=== PATIENT | female | born 1990 | race Two or more races ===

== ENCOUNTER 2016-12-11 13:04 | Emergency (ER) | payer SELFPAY ==
[~2016-12-11 13:04] MED LIST: TRAM50TA PO
[2016-12-11 13:20] VITALS: BP 116/78
--- NOTE | 2016-12-11 15:30 | PHYS DOC ---
Past Medical History Past Medical History: Other Additional Past Medical Histor: POLYCYSTIC OVARIAN DISEASE Past Surgical History: Tubal ligation Alcohol Use: None Drug Use: None Adult General Chief Complaint Chief Complaint: LOWER EXT PAIN HPI HPI Patient is a 26 year old female who presents with left calf pain. Patent it reports since yesterday she has been having some discomfort in her left calf. No trauma or other inciting event. She also reports that she had had mild discomfort in her chest at one point, but is not having any pain now. No shortness of breath. Lastly, she is having slight pain in her right cheek when she opens her mouth. She has not taken anything for symptoms. Of note, patient has been on oral contraceptives for the past week. She told her doctor about her symptoms, was instructed to come to the emergency department for evaluation. Review of Systems Review of Systems Constitutional: Denies fever or chills Eyes: Denies change in visual acuity or eye pain HENT: R cheek pain when opening mouth Respiratory: Denies cough or shortness of breath Cardiovascular: Denies chest pain GI: Denies abdominal pain, nausea, vomiting, bloody stools or diarrhea : Denies dysuria or hematuria Musculoskeletal: L calf pain Integument: Denies rash or skin lesions Neurologic: Denies headache, focal weakness or sensory changes Allergies Allergies Allergies Coded Allergies Type Severity Reaction Last Updated Verified No Known Drug Allergies 10/18/16 No Physical Exam Physical Exam Constitutional: Well developed, well nourished, no acute distress, non-toxic appearance HENT: Normocephalic, atraumatic, bilateral external ears normal; oropharynx clear; mild TTP over R maxillary sinus Eyes: EOMI, conjunctiva normal, no discharge Neck: Normal range of motion, no stridor Cardiovascular: Heart rate normal, regular rhythm, no murmur Lungs & Thorax: Bilateral breath sounds clear to auscultation Abdomen: Bowel sounds normal, soft, non-distended, no TTP Skin: Warm, dry, no erythema, no rash Extremities: L calf mildly TTP, no erythema, swelling, or warmth to touch Neurologic: Alert and oriented X 3, no gross deficits noted Current Patient Data Vital Signs Vital Signs Date Time Temp Pulse Resp B/P Pulse Ox O2 Delivery O2 Flow Rate FiO2 12/11/16 13:20 98.9 72 18 116/78 96 Room Air 98.9 EKG EKG EKG (my read): sinus rhythm, rate 61, normal axis, intervals wnl, no acute ischemic changes Radiology/Procedures Radiology/Procedures LLE US: Impression: No evidence of left lower extremity deep venous thrombosis. Course & Med Decision Making Course & Med Decision Making Pertinent Labs and Imaging studies reviewed. (See chart for details) Patient is 26-year-old female who presents with left calf pain and right facial pain. Will obtain ultrasound to rule out DVT, although this seems unlikely based on physical exam. Mild tenderness over right maxillary sinus, possible sinusitis but in general no concerning findings on physical exam. No tachycardia or hypoxia. EKG already obtained, no abnormalities per my read. Declines need for pain medication. Left lower extremity ultrasound negative for DVT. Discussed results with patient. Discharged home with instructions for follow-up and return precautions. Dragon Disclaimer Dragon Disclaimer This electronic medical record was generated, in whole or in part, using a voice recognition dictation system. Departure Departure Impression: Primary Impression: Acute pain of left lower extremity Additional Impression: Facial pain Disposition: 01 HOME, SELF-CARE Condition: STABLE Referrals: JESSICA MATTHEWS MD (PCP) Patient Instructions: Muscle Strain Additional Instructions: Thank you for allowing us to provide care today in the Emergency Department. Your ultrasound did not show any evidence of a blood clot in your leg. You can take acetaminophen, ibuprofen, or naproxen for your pain. Follow the directions on the label. Schedule a follow up appointment with your primary care doctor as soon as possible. Return promptly to the Emergency Department if you develop any new or concerning symptoms. Problem Qualifiers TIFFANY ALVAREZ MD Dec 11, 2016 15:30
--- NOTE | 2016-12-11 16:26 | RAD ---
Left lower extremity venous Doppler ultrasound History: Left lower extremity pain, oral contraceptive use, evaluate for deep venous thrombosis. Comparison: None. Procedure: Color Doppler, spectral Doppler, and grayscale images are obtained with and without compression in the area of the common femoral vein, superficial femoral vein - femoral vein junction, main femoral vein (superficial femoral vein) and popliteal vein. Veins of the proximal calf are also imaged. Findings: There is normal duplex flow, color flow and compressibility of all visualized vein segments. No evidence of deep venous thrombosis is present. Impression: No evidence of left lower extremity deep venous thrombosis.
--- NOTE | 2016-12-11 18:36 | EKG ---
[facility] [address] [place] [address] Test Date: 2016-12-11 Test Time: 15:52:31 Pat Name: TIARA ISALS Department: Room: Gender: F Hotel Associate: : 1990 Requested By: TIFFANY ALVAREZ Order Number: [id number] Reading MD: Measurements Intervals [place] Rate: 61 P: 32 ID: [id number] QRS: 21 QRSD: 62 T: 24 QT: 418 QTc: 422 Interpretive Statements SINUS RHYTHM NORMAL ECG RI6.01 Unconfirmed report No previous ECG available for comparison
== END 2016-12-11 17:23 | disposition home or self-care (01) ==
LOC: ER 13:07
DX: M79.662 Pain in left lower leg (principal); R51 Headache; E28.2 Polycystic ovarian syndrome; Z98.51 Tubal ligation status
CPT/HCPCS: 93005; 93971; 99284-25